=== PATIENT | female | born 1965 | race Caucasian/White ===

== ENCOUNTER → 2018-05-04 | Outpatient (CLI) | payer BC | LOC: RAD 08:50 | PROVIDERS: ATTEND Nurse Practitioner Family | DX: Z12.31 Encounter for screening mammogram for malignant neoplasm of breast (principal) | CPT/HCPCS: 77067 ==

== ENCOUNTER 2018-05-17 05:46 | Outpatient (CLI) | payer BC ==
[~2018-05-17] VITALS: Ht 167.6 cm; Wt 82.1 kg
[2018-05-17] MEDS ORDERED: LEVO50TA6 PO (11:19)
[2018-05-17] MEDS ORDERED: ASCO10006 PO (11:19)
[2018-05-17] MEDS ORDERED: LOSA50TA63 PO (11:19)
[2018-05-17] MEDS ORDERED: CALC-823 PO (11:19)
[2018-05-17] MEDS ORDERED: HYDR25TA4 PO (11:19)
[2018-05-17] MEDS ORDERED: ASPI-586 PO (11:19)
[2018-05-17] MEDS ORDERED: PANT40TA3 PO (11:19)
[2018-05-17] MEDS ORDERED: CHOL400C9 PO (11:19)
[2018-05-17] MEDS ORDERED: BUPR300T51 PO (11:19)
[2018-05-17] MEDS ORDERED: MAGN250T13 PO (11:20)
[2018-05-17] MEDS ORDERED: POTA99TA21 PO (11:20)
== END 2018-05-17 11:41 | disposition home or self-care (01) ==
LOC: PREOP 05:46
PROVIDERS: ATTEND Surgery
DX: Z01.818 Encounter for other preprocedural examination (principal)

== ENCOUNTER → 2018-05-17 | Outpatient (CLI) | payer BC ==
[~2018-05-17] MED LIST: ASCO10006 PO; ASPI-586 PO; BUPR300T51 PO; CALC-823 PO; CHOL400C9 PO; HYDR25TA4 PO; LEVO50TA6 PO; LOSA50TA63 PO; MAGN250T13 PO; PANT40TA3 PO; POTA99TA21 PO
--- NOTE | 2018-05-17 20:09 | Diagnostic Imaging Report ---
INDICATION: Right breast density. Patient presents for additional views. COMPARISON: Correlation is made with recent screening study from 05/04/2018. EXAMINATION: Unilateral right 2D and 3D diagnostic mammography was performed including spot compression CC and ML views as well as a conventional 90 degree lateral view. The current study was also evaluated with a Computer Aided Detection (CAD) system. FINDINGS: Additional views confirm circumscribed densities in the retroareolar right breast at the 6:00 location. This has the appearance of a cluster of cysts. Further evaluation with ultrasound is recommended. No suspicious calcifications are seen. IMPRESSION: Circumscribed densities in retroareolar right breast. Further evaluation with ultrasound is recommended and will be performed today. ACR BI-RADS Category 0: Incomplete. (Needs additional imaging evaluation). Result letter will be mailed to the patient. Note: At least 10% of breast cancer is not imaged by mammography. Dictated by: Dictated on workstation # [id number]
--- NOTE | 2018-05-17 20:57 | Diagnostic Imaging Report ---
INDICATION: Retroareolar density. Study was performed for further evaluation. COMPARISON: Correlation is made with the diagnostic mammogram earlier the same day as well as screening mammogram from 05/04/2018. EXAMINATION: Sonographic interrogation of the retroareolar right breast was performed. FINDINGS: There are circumscribed hypoechoic lesions at the 6 o'clock retroareolar location corresponding to the mammographic abnormality. These are most suggestive of cysts. The largest cyst appears to be simple, measuring 12 mm x 5 mm x 11 mm. There is a cyst with some internal debris, measuring 9 mm x 5 mm x 11 mm. No internal vascularity is present. IMPRESSION: Retroareolar cyst, correlating with the mammographic density. One cyst is minimally complex. The patient may return to routine annual screening mammography. ACR BI-RADS Category 2: Benign findings. Result letter will be mailed to the patient. Note: At least 10% of breast cancer is not imaged by mammography. Dictated by: Dictated on workstation # [id number]
== END ==
LOC: RAD 08:08
PROVIDERS: ATTEND Nurse Practitioner Family
DX: N60.01 Solitary cyst of right breast (principal); N63.41 Unspecified lump in right breast, subareolar

== ENCOUNTER 2018-05-23 12:19 | Day surgery (SDC) | payer BC ==
[~2018-05-23] VITALS: Ht 167.6 cm; Wt 82.1 kg
[2018-05-23 12:40] VITALS: BP 124/79
[2018-05-23] MEDS ORDERED: LACTATED RINGERS 1,000 ML IV PRN (12:45)
[2018-05-23] MEDS ORDERED: LACTATED RINGERS 1,000 ML IV ONE (12:50)
[2018-05-23] MEDS ORDERED: PROPOFOL INJECTION 50 ML IV ONE (13:04)
[2018-05-23] MEDS ORDERED: MIDAZOLAM 5 MG/5 ML (VERSED) VIAL ONE (13:05)
--- NOTE | 2018-05-23 13:46 | Progress Note-Pre Operative ---
Pre-Operative Progress Note H&P Reviewed The H&P was reviewed, patient examined and no changes noted. Time Seen by Provider: 13:40 Date H&P Reviewed: May 23, 2018 Time H&P Reviewed: 13:41 Pre-Operative Diagnosis: screening colonoscopy KORY LEON DO May 23, 2018 13:46
--- OUTSIDE RECORDS SUMMARY | 2018-05-23 14:04 | XMS REPORT | CCD ---
Author Author FLORENTINO HARVEY Unknown Address [address] [place] [address] Care Team Providers Care Hotel Assistant Manager Name Role Phone RICHY PARKER, DINORA Thomas Attphys Allergies Allergy Code Allergy Type Reaction Status DARVOCET-N 100 0 Drug allergy VOMITING Active Active Medications No Active Medications Problems Unknown or Not Available. Procedures Procedure Code Procedure Type Date Arthroplasty, interposition, intercarpal or carpometacarpal joints; (-RT R 68464 CPT 02/11/2016 Results Unknown or Not Available. Function Status Unknown or Not Available. History of Immunizations Unknown or Not Available. Plan of Treatment Unknown or Not Available. Social History Smoking Status Code Start Date End Date Former smoker [id number] 03/13/2000 Vital Signs Vital Sign Value Unit Date/Time Recent/Initial? Weight Measured 190 [lb_av] 02/09/2016 13:20 Initial VS Height 66 [in_i] 02/09/2016 13:20 Initial VS BMI (Body Mass Index) 30.67 kg/m2 02/09/2016 13:20 Initial VS BSA (Body Surface Area) 2 m2 02/09/2016 13:20 Initial VS Respiratory Rate 16 /min 02/11/2016 10:22 Initial VS Heart Rate 98 /min 02/11/2016 10:22 Initial VS O2 % BldC Oximetry 94 % 02/11/2016 10:22 Initial VS BP Systolic 147 mm[Hg] 02/11/2016 10:23 Initial VS BP Diastolic 101 mm[Hg] 02/11/2016 10:23 Initial VS BP Systolic 132 mm[Hg] 02/11/2016 11:23 Most Recent VS BP Diastolic 89 mm[Hg] 02/11/2016 11:23 Most Recent VS Respiratory Rate 19 /min 02/11/2016 11:23 Most Recent VS Heart Rate 81 /min 02/11/2016 11:23 Most Recent VS O2 % BldC Oximetry 93 % 02/11/2016 11:23 Most Recent VS Function Status Unknown or Not Available. Goals Unknown or Not Available. ASSESSMENTS Unknown or Not Available. Health Concerns Section Unknown or Not Available.
--- OUTSIDE RECORDS SUMMARY | 2018-05-23 14:04 | XMS REPORT | Continuity of Care Document ---
Author Author [facility] Address Unknown Phone Unavailable Allergies Active Description Code Type Severity Reaction Onset Reported/Identified Relationship to Patient Clinical Status Yes DARVOCET-N 100 [id number] BRANDNAME N/A VOMITING Yes acetaminophen [id number] Drug Allergy Mild N/V 05/17/2018 Yes propoxyphene [id number] Drug Allergy Mild N/V 05/17/2018 Medications There is no data. Problems Date Dx Coded Attending Type Code Diagnosis Diagnosed By 05/06/2018 DEL [facility]CER QUALITY ASSURANCE SUPERVISOR BODY Ot Z12.31 ENCNTR SCREEN MAMMOGRAM FOR MALIGNANT NE 05/10/2018 [employer] [facility] QUALITY ASSURANCE SUPERVISOR BODY Ot Z12.31 ENCNTR SCREEN MAMMOGRAM FOR MALIGNANT NE 05/17/2018 KORY LEON DO Ot Z01.818 ENCOUNTER FOR OTHER PREPROCEDURAL EXAMIN 05/17/2018 [employer] [facility] QUALITY ASSURANCE SUPERVISOR BODY Ot Z12.31 ENCNTR SCREEN MAMMOGRAM FOR MALIGNANT NE 05/20/2018 [employer] [facility] QUALITY ASSURANCE SUPERVISOR BODY Ot N60.01 SOLITARY CYST OF RIGHT BREAST 05/20/2018 [employer] [facility] QUALITY ASSURANCE SUPERVISOR BODY Ot N63.41 UNSPECIFIED LUMP IN RIGHT BREAST, SUBARE Procedures There is no data. Results Test Result Range Helicobacter pylori, IgM Ab - 01/04/17 18:24 H pylori, IgM Abs 6.8 units 0.0-8.9 Encounters ACCT No. Visit Date/Time Discharge Status Pt. Type Provider Facility Loc./Unit Complaint [id number] 02/16/2017 16:49:43 02/16/2017 23:59:59 [facility] Outpatient Angie Moore [id number] 03/23/2016 11:25:37 03/23/2016 23:59:59 CLS Outpatient Angie Moore [id number] 01/05/2017 13:01:41 Document Registration [id number] 01/04/2017 17:09:01 Document Registration [id number] 05/17/2018 08:08:00 05/17/2018 23:59:59 CLS Outpatient DEL MERCER APRN [facility] RAD MASS IN THE RIGHT BREAST SUBAREOLAR REGION [id number] 05/17/2018 05:46:00 05/17/2018 11:41:00 DIS Outpatient KORY LEON DO [facility] PREOP COLONOSCOPY [id number] 05/04/2018 08:50:00 05/04/2018 23:59:59 CLS Outpatient DEL MERCER APRN [facility] RAD SCREENING [id number] 05/23/2018 13:25:00 PEN Preadmit KORY LEON DO [facility] ENDO SCREENING [id number] 01/06/2017 11:06:00 Document Registration
--- OUTSIDE RECORDS SUMMARY | 2018-05-23 14:04 | XMS REPORT | CCD ---
Author Author FLORENTINO HARVEY Unknown Address [address] [place] [address] Care Team Providers Care Server Software Engineer Name Role Phone HARIS PARKER, VIKY Castro Attphys S., TALAT RIVAS NASST K., SARA NASST S., MOUNA Bravo NASST C., RUSTAM NASST G., DENIZ Thomas NASST G., ODETTE NASST R., NOVA NASST C., NATASHA NASST Allergies Allergy Code Allergy Type Reaction Status DARVOCET-N 100 {Deactivated Allergy} 0 Drug allergy VOMITING Active Active Medications Medication Code Dose Units Frequency Route Modification Start Date/Time Calcium 500 + D 500 MG-125 IU Oral Tablet 47404436030 2 EACH DAILY ORAL 01/05/2017 12:56 Prescription Detail 2 EACH ORAL DAILY Furosemide 20MG Oral Tablet 827157 40 MILLIGRAMS NEEDED ORAL 01/05/2017 12:56 Prescription Detail 40 MILLIGRAMS ORAL NEEDED Levothyroxine 50MCG Oral Tablet 210953 50 MCG DAILY ORAL 01/05/2017 12:56 Prescription Detail 50 MCG ORAL DAILY Naproxen 500MG Oral Tablet 327196 500 MILLIGRAMS NEEDED EVERY 12 H ORAL 01/05/2017 12:56 Prescription Detail 500 MILLIGRAMS ORAL NEEDED EVERY 12 H ProAir HFA 0.09MG/1Actuation Inhalation Suspension 229102 1 EACH NEEDED INHALATION 01/05/2017 12:56 Prescription Detail 1 EACH INHALATION NEEDED Singulair 10MG Oral Tablet 504344 10 MILLIGRAMS NEEDED DAILY ORAL 01/05/2017 12:56 Prescription Detail 10 MILLIGRAMS ORAL NEEDED DAILY Sucralfate 1GM Oral Tablet 945888 1 TABLET BEFORE MEALS AND BED BY MOUTH TO COAT AND TREAT IRRITATION 2016 12:56 Prescription Detail 1 TABLET BY MOUTH BEFORE MEALS AND BED TO COAT AND TREAT IRRITATION Nitrostat 0.4MG Sublingual Tablet 452633 1 EACH NEEDED SUBLINGUAL Q 5 MIN FOR CP,NO MORE THAN 3 01/05/2017 12:54 Prescription Detail 1 EACH SUBLINGUAL NEEDED Q 5 MIN FOR CP,NO MORE THAN 3 Pantoprazole Sodium 40MG Oral Tablet, Enteric Coated 653571 1 TABLET DAILY BY MOUTH TO REDUCE STOMACH ACID 12:54 Prescription Detail 1 TABLET BY MOUTH DAILY TO REDUCE STOMACH ACID Carvedilol 6.25MG Oral Tablet 977537 6.25 MILLIGRAMS EVERY 12 HOURS BY MOUTH FOR BP CONTROL 01/05/2017 12:53 Prescription Detail 6.25 MILLIGRAMS BY MOUTH EVERY 12 HOURS FOR BP CONTROL Fluvirin Formula 45MCG/0.5ML Intramuscular Suspension 5169937 1 TABLET DAILY BY MOUTH 01/05/2017 12:53 Prescription Detail 1 TABLET BY MOUTH DAILY Magnesium Oxide 400MG Oral Tablet 328654 1 TABLET DAILY BY MOUTH FOR LOW LEVEL 01/05/2017 12:53 Prescription Detail 1 TABLET BY MOUTH DAILY FOR LOW LEVEL Aspirin 325MG Oral Tablet, Enteric Coated 992434 325 MILLIGRAMS DAILY WITH A MEAL BY MOUTH 01/05/2017 12:52 Prescription Detail 325 MILLIGRAMS BY MOUTH DAILY WITH A MEAL Problems Problem Code Start Date Resolved Date Status Chest pain [id number] 01/04/2017 Active Procedures Procedure Code Procedure Type Date US ECHO 2D COMP WITH DOPP AND COLOR 44699072 SNOMED CT CX CHEST [address] 01/04/2017 OCCULT BLOOD iFOBT 672220039 SNOMED CT 01/04/2017 TROPONIN-I ADV 639682657 SNOMED CT 01/05/2017 LIPID PANEL W/LDL 04427028 SNOMED CT 01/05/2017 H PYLORI IGM 643185380 SNOMED CT 01/04/[address] 01/04/[address] 01/04/2017 COMPREHENSIVE METABOLIC PANEL 399141162 SNOMED CT 2016 TROPONIN-I ADV 892549551 SNOMED CT 01/05/2017 TROPONIN-I ADV 144304987 SNOMED CT 01/04/[address] 01/04/2017 Results COMPREHENSIVE METABOLIC PANEL - Collect Date/Time: 01/04/2017 18:24 Test Name Code Test Result Test Units Test Ref Range GLUCOSE 2345-7 88 MG/DL L=70 H=100 SODIUM 2951-2 142 MEQ/L L=135 H=148 POTASSIUM 2823-3 3.8 MEQ/L L=3.5 H=5.3 CHLORIDE 2075-0 109 MEQ/L L=96 H=110 CO2 2028-9 26 MEQ/L L=22 H=29 BUN 3094-0 14 MG/DL L=8 H=22 CREATININE 2160-0 0.8 MG/DL L=0.6 H=1.6 SGOT/AST 1920-8 16 IU/L L=10 H=40 SGPT/ALT 1742-6 9 IU/L L=8 H=54 ALK PHOS 6768-6 62 IU/L L=35 H=115 TOTAL PROTEIN 2885-2 6.7 G/DL L=5.5 H=8.5 ALBUMIN 1751-7 3.8 G/DL L=3.1 H=5.4 TOTAL BILI 1975-2 0.4 MG/DL L=0.0 H=1.5 CALCIUM 80071-5 9.3 MG/DL L=8.2 H=10.6 AGE 62368-0 51 yrs GFR NonAA 93945-7 76 GFR AA 88747-0 92 eGFR 44945-9 >60 N/A eGFR AA* 82769-8 >60 N/A LIPID PANEL W/LDL - Collect Date/Time: 01/05/2017 09:40 Test Name Code Test Result Test Units Test Ref Range TRIGLYCERIDES 3043-7 67 MG/DL L=0 H=135 CHOLESTEROL 2093-3 188 MG/DL L=0 H=199 HDL 2085-9 57 MG/DL L=29 H=89 TOT CHOL/HDL 49081-3 3.3 L=0.0 H=5.0 LDL 2089-1 117 MG/DL L=0 H=129 HEMOGRAM - Collect Date/Time: 01/04/2017 18:00 Test Name Code Test Result Test Units Test Ref Range WBC 89190-5 5.9 TH/CMM L=4.5 H=10.8 RBC 789-8 4.52 ML/CMM L=4.20 H=5.40 HGB 718-7 13.1 G/DL L=12.0 H=16.0 HCT 4544-3 40.7 % L=37.0 H=47.0 MCV 46733-2 90 FL L=81 H=99 MCH 08702-2 29.0 PG L=27.0 H=33.0 MCHC 93390-0 32.2 G/DL L=31.0 H=36[place]0 [place] [address]-3 43 FL L=36 H=50 [place] [address]-7 13.2 % L=0.0 H=14.8 MPV 45069-2 10.4 FL L=9.3 H=12.5 PLT 777-3 237 TH/CMM L=130 H=440 NRBC# 65037-7 0.00 TH/CMM L=0.00 H=0.00 NRBC% 87862-4 0.0 /100WBC L=0.0 H=2.0 PT/PTT - Collect Date/Time: 01/04/2017 18:00 Test Name Code Test Result Test Units Test Ref Range PROTIME 5964-2 10.3 SEC L=9.9 H=11.9 INR 88683-3 0.9 PTT 3173-2 25.0 SEC L=22.2 H=37.2 OCCULT BLOOD iFOBT - Collect Date/Time: 01/04/2017 23:58 Test Name Code Test Result Test Units Test Ref Range OCC BLD STOOL 2335-8 NEGATIVE N/A NORMAL: NEGATIVE H PYLORI IGM - Collect Date/Time: 01/04/2017 18:24 Test Name Code Test Result Test Units Test Ref Range H pylori, IgM Abs 7903-8 6.8 units 0.0-8.9 TROPONIN-I ADV - Collect Date/Time: 01/05/2017 09:40 Test Name Code Test Result Test Units [place] [address]-4 <0.04 ng/mL L=0.04 H= 0.40 TROPONIN-I ADV - Collect Date/Time: 01/05/2017 01:25 Test Name Code Test Result Test Units [place] [address]-5 <0.04 ng/mL L=0.04 H= 0.40 TROPONIN-I ADV - Collect Date/Time: 01/04/2017 18:24 Test Name Code Test Result Test Units [place] [address]-3 <0.04 ng/mL L=0.04 H= 0.40 TSH - Collect Date/Time: 01/04/2017 18:24 Test Name Code Test Result Test Units Test Ref Range TSH 20473-1 0.83 mIU/L L=0.35 H=4.94 MAGNESIUM - Collect Date/Time: 01/04/2017 18:24 Test Name Code Test Result Test Units Test Ref Range MAGNESIUM 94255-9 1.8 MG/DL L=1.7 H=2.8 Function Status Unknown or Not Available. History of Immunizations Immunization Code Date influenza, injectable, quadrivalent, preservative free 150 2016 Plan of Treatment Unknown or Not Available. Social History Smoking Status Code Start Date End Date Former smoker [id number] Vital Signs Vital Sign Value Unit Date/Time Recent/Initial? BP Systolic 146 mm[Hg] 01/04/2017 17:30 Initial VS BP Diastolic 99 mm[Hg] 01/04/2017 17:30 Initial VS Respiratory Rate 18 /min 01/04/2017 17:30 Initial VS Heart Rate 64 /min 01/04/2017 17:30 Initial VS O2 % BldC Oximetry 99 % 01/04/2017 17:30 Initial VS Body Temperature 97.3 [degF] 01/04/2017 17:30 Initial VS BMI (Body Mass Index) 28.19 kg/m2 01/04/2017 18:25 Initial VS Weight Measured 180 [lb_av] 01/04/2017 18:25 Initial VS Height 67 [in_i] 01/04/2017 18:25 Initial VS BSA (Body Surface Area) 1.96 m2 01/04/2017 18:25 Initial VS BP Systolic 139 mm[Hg] 01/05/2017 11:23 Most Recent VS BP Diastolic 91 mm[Hg] 01/05/2017 11:23 Most Recent VS Respiratory Rate 20 /min 01/05/2017 11:23 Most Recent VS Heart Rate 60 /min 01/05/2017 11:23 Most Recent VS O2 % BldC Oximetry 96 % 01/05/2017 11:23 Most Recent VS Body Temperature 96.8 [degF] 01/05/2017 11:23 Most Recent VS Function Status Unknown or Not Available. Goals Unknown or Not Available. ASSESSMENTS Unknown or Not Available. Health Concerns Section Unknown or Not Available.
[2018-05-23] MEDS ORDERED: proPOfol 200 MG/20 ML (DIPRIVAN) VIAL IV ONE (14:25)
--- NOTE | 2018-05-23 14:54 | Progress Note-Post Operative ---
Post-Operative Progess Note Surgeon (s)/Spanish Linguist (s) Surgeon KORY LEON DO Spanish Linguist: none Pre-Operative Diagnosis screening colonoscopy Post-Operative Diagnosis Diverticulosis Internal Hemorrhoids Procedure & Operative Findings Date of Procedure 05/23/18 Procedure Performed/Findings Colonoscopy Anesthesia Type IV sedation by BOWLING BALL ENGRAVER Estimated Blood Loss Estimated blood loss (mL): none Specimens/Packing Specimens Removed none KORY LEON DO May 23, 2018 14:54
[2018-05-23 14:55] VITALS: BP 98/59
--- NOTE | 2018-05-23 14:55 | Endoscopy Discharge Instruct ---
Endo Procedure/Findings Findings 1.: Diverticulosis 2.: Internal Hemorrhoids Discharge Instructions - Activity: You might feel a little sleepy until tomorrow. This is due to the medicine you received to relax you. Until tomorrow, you should: NOT drive a car, operate machinery or power tools. NOT drink any alcoholic beverages. NOT make any important decisions or sign importortant papers. Do not return to work until tomorrow, unless otherwise instructed. Resume previous activities tomorrow. Diet: Start by taking liquids. If you tolerate liquids, advance to solid food. make an appointment for 2 weeks. Instructions: 1.: Colonscopy in 10 years Notify Physician - If you experience excessive bleeding, unusual abdominal pain, fever, or chest pain, contact your doctor immediately. Follow-Up: - I have received and understand the above instructions and will call my doctor if I have any further questions. Patient Signature Date Nurse Signature Other (Relationship) KORY LEON DO May 23, 2018 14:55
[2018-05-23 15:35] VITALS: BP 119/66
[2018-05-23 15:45] VITALS: BP 119/66
--- NOTE | 2018-05-23 20:24 | OPERATIVE REPORT ---
DATE OF SERVICE: 05/23/2018 PREOPERATIVE DIAGNOSIS: Screening colonoscopy. POSTOPERATIVE DIAGNOSES: Diverticula and internal hemorrhoids. PROCEDURE: Colonoscopy. SURGEON: Darren Stokes DO TUB WASHER: None. ANESTHESIA: IV sedation by HYDRAULIC RUBBISH COMPACTOR MECHANIC. SPECIMENS: None. BLOOD LOSS: None. FLUIDS: Per anesthesia. POSTOPERATIVE CONDITION: Stable. INDICATION FOR PROCEDURE: The patient is a 52-year-old female, who has never had a colonoscopy and needs one for screening. FINDINGS: The patient had some diverticula and some internal hemorrhoids. No other obvious pathology. PROCEDURE NOTE: After informed consent was obtained, the patient was brought to the endoscopy suite, placed in the bed in left lateral decubitus position. She was administered IV sedation by the HYDRAULIC RUBBISH COMPACTOR MECHANIC, who then monitored her vitals the entire time, heart rate, blood pressure, pulse ox and the scope was inserted, pushed all the way about 150 cm, able to get all the way to the cecum, took a picture of the appendiceal orifice and the ileocecal valve and able to push into the terminal ileum, took a picture here. On the way in noted some diverticula, took a picture of this. She also has a very tortuous sigmoid and descending colon. Once we were in the cecum, then slowly withdrew the scope insufflating to look circumferentially at the clarke looking at the cecum, up the ascending colon to the hepatic flexure, then down the transverse colon, the splenic flexure, into the descending colon, then down the sigmoid and finally into the rectum, retroflexed and rectal vault, saw some minimal internal hemorrhoids, took a picture of this and then removed the scope. The patient tolerated the procedure. She was recovered in the endoscopy suite. Job ID: [id number] DocumentID: [id number] Dictated Date: 05/23/2018 14:53:32 Soybean Grower Date: 05/23/2018 20:23:25 Dictated By: DARREN STOKES DO
== END 2018-05-23 15:45 | disposition home or self-care (01) ==
LOC: ENDO 12:19
PROVIDERS: ATTEND Surgery
DX: Z12.11 Encounter for screening for malignant neoplasm of colon (principal); K57.30 Diverticulosis of large intestine without perforation or abscess without bleeding; K64.8 Other hemorrhoids; I10 Essential (primary) hypertension; E03.9 Hypothyroidism, unspecified; G73.3 Myasthenic syndromes in other diseases classified elsewhere; F41.9 Anxiety disorder, unspecified; F32.9 Major depressive disorder, single episode, unspecified; K21.9 Gastro-esophageal reflux disease without esophagitis; Z79.82 Long term (current) use of aspirin; Z79.899 Other long term (current) drug therapy; Z87.891 Personal history of nicotine dependence